=== PATIENT | female | born 1980 | race Caucasian/White ===

== ENCOUNTER 2019-01-12 16:52 | Outpatient (CLI) | payer BC | END 2019-01-12 23:59 | disposition home or self-care (01) | LOC: RAD 16:52 | PROVIDERS: ATTEND Physician Assistant | DX: R22.43 Localized swelling, mass and lump, lower limb, bilateral (principal); M79.604 Pain in right leg; M79.605 Pain in left leg; R23.0 Cyanosis | CPT/HCPCS: 93970 ==